=== PATIENT | male | born 1985 | race Caucasian/White ===

== ENCOUNTER → 2021-05-25 08:07 | Outpatient (CLI) | payer OTHER, SELFPAY | PROVIDERS: Family Provider Nurse Practitioner Family; PCP Nurse Practitioner Family; Referring Provider Orthopaedic Surgery; Visit Provider Orthopaedic Surgery | DX: G54.2 Cervical root disorders, not elsewhere classified (principal) | CPT/HCPCS: 95886; 95910 ==